=== PATIENT | male | born 1950 | race Caucasian/White ===

== ENCOUNTER 2017-10-08 14:29 | Emergency (ER) | payer SELFPAY ==
[~2017-10-08] VITALS: Ht 175.3 cm; Wt 68.3 kg
[2017-10-08 16:32] VITALS: BP 132/68
== END 2017-10-08 16:33 | disposition home or self-care (01) ==
LOC: EME 14:29
DX: S61.011A Laceration without foreign body of right thumb without damage to nail, initial encounter (principal); W20.8XXA Other cause of strike by thrown, projected or falling object, initial encounter; Z72.0 Tobacco use; Z23 Encounter for immunization
CPT/HCPCS: 73140; 99281; 99283